=== PATIENT | female | born 1975 | race Hispanic/Latino ===

== ENCOUNTER 2024-04-16 07:07 | Day surgery (SDC) | payer OTHER ==
[2024-04-15 16:20] LABS: Absolute Lymphocytes (CBC) 2.8 K/uL (0.7-4.9); Absolute Monocytes 0.3 K/uL (0.1-1.3); Absolute Neutrophil 2.2 K/uL (1.8-8.0); Basophils % 0.6 % (0-1.3); Eosinophils % 0.5 % (0-4.4); Hematocrit 39.4 % (36.0-45.0); Lymphocytes % 51.5 % (15.3-44.8); MCV 88.1 fL (80-100); MPV 9.7 fL (7.6-11.3); Monocytes % 6.4 % (3.3-12.3); Platelets 225 thou/uL (152-406); RBC Red Blood Cell Count 4.47 M/uL (3.86-4.86); Red Cell Distribution Width 13.2 % (12.1-15.2)
[2024-04-15 16:38] LABS: Albumin 3.8 g/dL (3.4-5.0); Albumin/Globulin Ratio 1.2 (1.1-1.8); Anion Gap 7.1 mEq/L (5.0-15.0); Bilirubin Direct 0.2 mg/dL (0-0.2); Bilirubin Indirect, Calculated 0.4 mg/dL (0.2-0.8); Bilirubin Total 0.6 mg/dL (0.2-1.0); Globulin 3.2 g/dL (2.3-3.5); Potassium 4.1 mEq/L (3.5-5.1)
--- NOTE | 2024-04-15 16:42 | RAD REPORT ---
EXAMINATION: TWO VIEW CHEST XR CLINICAL INDICATION: Pre op pending cholecystectomy TECHNIQUE: 2 views of the chest was performed. COMPARISON: No prior exam. FINDINGS: The lungs are well inflated and clear. The heart is normal in size. No displaced fractures evident. IMPRESSION: No acute or significant abnormalities.
[2024-04-16] MEDS ORDERED: LIDOCAINE 1% MPF 5 ML VIAL ONE (07:18)
[2024-04-16] MEDS ORDERED: ROCURONIUM 50 MG/5 ML VIAL IV ONE (07:18)
[2024-04-16] MEDS ORDERED: KETOROLAC 30 MG/ML INJ ONE ×2 (07:18→10:21)
[2024-04-16] MEDS ORDERED: ONDANSETRON 4 MG/2 ML VIAL ONE (07:18)
[2024-04-16] MEDS ORDERED: Ringers Lactate 1,000 ML IV ONE (07:19)
[2024-04-16] MEDS ORDERED: FENTANYL CITR 100 MCG/2 ML ONE (07:20)
[2024-04-16] MEDS ORDERED: propofoL 200 MG/20 ML VIAL IV ONE (07:20)
[2024-04-16] MEDS ORDERED: MIDAZOLAM HCL 2 MG/2 ML INJ ONE (07:20)
[2024-04-16] MEDS ORDERED: SUGAMMADEX SODIUM 200 MG/2 ML VIAL IV ONE (08:10)
[2024-04-16] MEDS: CEFOXITIN SODIUM 1 GM/VIAL ONE (08:59)
[2024-04-16] MEDS ORDERED: dexAMETHasone 10 MG/ML VIAL ONE (09:04)
[2024-04-16] MEDS ORDERED: GLYCOPYRROLATE 0.2 MG/ML SYR ONE (09:15)
[2024-04-16] MEDS ORDERED: EPHEDRINE SULF 50 MG/ML VIAL ONE (09:17)
[2024-04-16] MEDS ORDERED: HYDROMORPHONE HCL 1 MG/ML INJ ONE ×2 (09:45→09:51)
--- NOTE | 2024-04-16 09:49 | P.BOP ---
Preoperative diagnosis: symptomatic cholelithiasis, hx of gastric bypass, RUQ abd pain Postoperative diagnosis: same Primary procedure: Laparoscopic cholecystectomy Estimated blood loss: <10cc Specimen: gb Findings: as above Anesthesia: General Complications: None Transferred to: Recovery Room Condition: Good
[2024-04-16] MEDS: FENTANYL CITR 100 MCG/2 ML ONE (10:01)
[2024-04-16] MEDS: MEPERIDINE HCL 25 MG/ML SYR ONE (10:21)
[2024-04-16] MEDS: HYDROCODONE/APAP 7.5/325 MG TAB ONE (10:31)
[2024-04-16 13:33] VITALS: BP 115/69; TEMP 98.8; O2SAT 96
--- NOTE | 2024-04-17 11:57 | EKG ---
Test Date: 2024-04-15 Test Time: 17:03:27 Lead Systems Developer: CATHLEEN MEASUREMENT RESULTS: Intervals: Rate: 63 NV: 172 QRSD: 76 QT: 408 QTc: 417 [place]: P: 43 NV: 172 QRS: 63 T: 44 INTERPRETIVE STATEMENTS: Normal sinus rhythm Normal ECG No previous ECG available for comparison Electronically Signed On 04-17-24 11:56:02 SILVER SERVICE WAITER by Coy Moore
--- NOTE | 2024-04-17 21:04 | DS ---
Date of Discharge: 04/16/2024 Diagnoses: Symptomatic cholelithiasis, history of gastric bypass, right upper quadrant abdominal shirin n, and intraabdominal adhesions. Procedure: Laparoscopic cholecystectomy. Condition: Stable. Disposition: Home. Activity: As tolerated. No heavy lifting. Discharge Instructions: Follow up in my office in 1 week. Call for appointment at [phone]. Keep ar ea dry for 48 hours, then may shower. TEE/JESSENIA Voice ID: [id number] Report ID: [id number]
--- NOTE | 2024-04-17 21:04 | OP ---
Surgeon: German Mcdowell MD Preoperative Diagnoses: Symptomatic cholelithiasis, history of gastric bypass, right upper quadrant abdominal pain. Postoperative Diagnoses: Symptomatic cholelithiasis, history of gastric bypass, right upper quadrant abdominal pain. Procedure: Laparoscopic cholecystectomy. Estimated Blood Loss: Less than 10 cc. Specimen: Gallbladder. Anesthesia: General plus local. Findings: As above. Complications: None. Indications: This is the case of a female, who came to us with above diagnoses. Fully explained the benefits, alternatives, and risks of laparoscopic possible open cholecystectomy, which include, but not limited to, infection, bleeding, damage to adjacent structures, anesthesia complication, choledoc holithiasis, bile leak, pancreatitis, IA, and even . She also understands this may not relieve any symptoms. She might need more than one surgical intervention. She understood, signed a consent. Description Of Procedure: The patient was brought to the operating room, placed in supine position. Anesthesia was induced without complication. Abdominal area was prepped and draped in usual sterile fashion. Marcaine 0.5% was injected for local anesthetic followed by sharp incision of the skin in the infraumbilical region. Incision was carried down to fascia, which was opened under direct vision . Peritoneum was encountered, opened under direct vision. Vicryl #1 placed inside the fascia. Korey on trocar was carefully introduced. Pneumoperitoneum was obtained. I placed 3 more trocars, 5 mm ea ch one of them in the epigastric, right upper quadrant area using the same technique which consisted of local anesthetic, sharp incision of the skin, introduction of the trocars under direct vision. Im mediately, we noticed the patient to have adhesions on the area. Obviously, she had previously surgi yaniv interventions with the gastric bypass, but we were able to remove them with the help of Endo Henry rs. At that moment, I proceeded to put a grasper in the fundus of the gallbladder, another grasper i n the infundibulum, retracting the gallbladder in the inferolateral fashion exposing the triangle of Calot, and obtaining critical view. Cystic duct and cystic artery were clearly isolated and freed ci rcumferentially and a connection between those and the gallbladder were clearly identified. I procee ded to ligate those by using at least 3 clips proximal, 1 clip distal, ligation in the middle. Same was done with the cystic artery. No bile leak. No bleeding. The gallbladder was removed from liver using Bovie cauterizer and removed from abdominal cavity using EndoCatch through the umbilical incis ion. Area was inspected once again. No bile leak. No bleeding. At that moment, I proceeded to rem ove the trocars under direct vision. Deflated pneumoperitoneum, closed the fascia with #1 Vicryl, ir rigated subcutaneous tissue, closed that with 3-0 chromic and the skin approximated. Sponge counts a nd instrument counts were correct. Patient tolerated the procedure well. Patient was sent to [facility] in stable condition. TEE/JESSENIA Voice ID: [id number] Report ID: [id number]
== END 2024-04-16 13:05 | disposition home or self-care (01) ==
LOC: OR 07:07
PROVIDERS: ATTEND Surgery
PROC: 0FT44ZZ Resection of Gallbladder, Percutaneous Endoscopic Approach (ICD-10-PCS; principal; 2024-04-16 09:15)
DX: K80.10 Calculus of gallbladder with chronic cholecystitis without obstruction (principal); R10.11 Right upper quadrant pain; Z98.84 Bariatric surgery status; F90.9 Attention-deficit hyperactivity disorder, unspecified type; F32.A Depression, unspecified; F41.9 Anxiety disorder, unspecified; K21.9 Gastro-esophageal reflux disease without esophagitis
CPT/HCPCS: 85025; 80048; 36415; 80076; 88304; 83690; 71046; 47562; J2704; J2003; J2250; J3010 ×2; J1100; J2175; J1171 ×2; J0694; J2405; J7120; 93005